=== PATIENT | female | born 1975 | race Caucasian/White ===

== ENCOUNTER → 2017-11-02 | Outpatient (CLI) | payer OTHER | LOC: CIMAGING 08:33 | PROVIDERS: ATTEND Family Medicine | DX: Z12.31 Encounter for screening mammogram for malignant neoplasm of breast (principal); Z80.3 Family history of malignant neoplasm of breast | CPT/HCPCS: G0202 ==

== ENCOUNTER → 2017-11-09 | Outpatient (CLI) | payer OTHER | LOC: FIMAGING 10:13 | PROVIDERS: ATTEND Family Medicine | DX: R92.8 Other abnormal and inconclusive findings on diagnostic imaging of breast (principal) ==

== ENCOUNTER → 2018-04-15 | Outpatient (CLI) | payer OTHER | LOC: FIMAGING 10:04 | PROVIDERS: ATTEND Orthopaedic Surgery | DX: S83.282A Other tear of lateral meniscus, current injury, left knee, initial encounter (principal); M25.462 Effusion, left knee; M71.22 Synovial cyst of popliteal space [Baker], left knee; M77.8 Other enthesopathies, not elsewhere classified ==